=== PATIENT | female | born 1985 | race Caucasian/White ===

== ENCOUNTER 2017-11-25 00:11 | Emergency (ER) | payer OTHER, MEDICAID ==
[~2017-11-25] VITALS: Ht 152.4 cm; Wt 101.3 kg
[2017-11-25 00:13] VITALS: BP 111/60
--- NOTE | 2017-11-25 00:35 | NUR ---
PATIENT PRESENTS TO ED WITH SOB . PT STATES SHE HAS HAD DIFFICULTY BREATHING FOR A "FEW MONTHS" . DENIES N/V/D; SKIN IS PINK/WARM/DRY; AAOX4 WITH EVEN AND STEADY GAIT; LUNGS CLEAR BL; HR EVEN AND REGULAR; PT DENIES ANY FEVER, CP, OR COUGH AT THIS TIME; PATIENT STATES PAIN OF 0/10 AT THIS TIME; VSS; PATIENT POSITIONED FOR COMFORT; ER MD MADE AWARE OF PT STATUS.
--- NOTE | 2017-11-25 01:05 | NUR ---
pt returned from xray via wheel chair.
[2017-11-25 01:46] VITALS: BP 116/78
== END 2017-11-25 01:46 | disposition home or self-care (01) ==
LOC: MED 00:11
DX: R09.1 Pleurisy (principal); M54.6 Pain in thoracic spine; E11.9 Type 2 diabetes mellitus without complications
CPT/HCPCS: 71045; 82948; 99283; Q0092

== ENCOUNTER 2018-12-14 12:37 | Emergency (ER) | payer MEDICAID, OTHER ==
[~2018-12-14] VITALS: Ht 154.9 cm; Wt 99.8 kg
[2018-12-14 12:45] VITALS: BP 126/78
[2018-12-14] MEDS ORDERED: GLIP10TE PO (12:48)
[2018-12-14] MEDS ORDERED: METF850T PO (12:48)
--- NOTE | 2018-12-14 12:56 | NUR ---
PATIENT PRESENTS TO ED WITH THE CHIEF C/O HEADACHE AND RIGHT ARM PAIN X TODAY . DENIES N/V/D; SKIN IS PINK/WARM/DRY; AAOX4 WITH EVEN AND STEADY GAIT. PT DENIES ANY FEVER, CP, SOB, OR COUGH AT THIS TIME. SATURATING 100 % IN ROOM AIR. PATIENT STATES PAIN OF 5/10 AT THIS TIME; VSS; PATIENT POSITIONED FOR COMFORT; HOB ELEVATED; BEDRAILS UP X2; BED DOWN. ER MD MADE AWARE OF PT STATUS.
[2018-12-14] MEDS ORDERED: KETOROLAC 60 MG/2 ML VIAL IM ONE (13:15)
--- NOTE | 2018-12-14 13:15 | NUR ---
DR POSADAS AT BEDSIDE EVALUATING PT
[2018-12-14 13:56] VITALS: BP 120/63
== END 2018-12-14 13:54 | disposition home or self-care (01) ==
LOC: MED 12:37
DX: R51 Headache (principal); R20.0 Anesthesia of skin; M79.601 Pain in right arm; M54.2 Cervicalgia; E11.9 Type 2 diabetes mellitus without complications; Z79.84 Long term (current) use of oral hypoglycemic drugs
CPT/HCPCS: 81002; 81025; 82948; 96372; 99283; J1885

== ENCOUNTER 2019-02-08 10:24 | Emergency (ER) | payer MEDICAID ==
[~2019-02-08] VITALS: Ht 154.9 cm; Wt 98.4 kg
[~2019-02-08 10:24] MED LIST: GLIP10TE PO; METF850T PO
[2019-02-08 10:28] VITALS: BP 139/74
--- NOTE | 2019-02-08 10:30 | NUR ---
33 Y F BIB DAUGHTER WITH C/O HEADACHE, SINUS PAIN AND DIARRHEA SINCE LAST NIGHT. BOWEL SOPUNDS ACTIVE IN ALL 4 QUADRANTS. LAST BM LAST NIGHT. PAIN 7/10 FOR HEADACHE. AA0X4. VSS AT THIS TIME. BED IS DOWN, LOCKED, BED RAIL X 1, ERMD NOTIFIED. PMH-DIABETES
--- NOTE | 2019-02-08 11:22 | NUR ---
dr helms at bedside
[2019-02-08] MEDS ORDERED: ACETAMINOPHEN 325 MG TAB PO ONE (11:35)
[2019-02-08] MEDS ORDERED: NACL 0.9% 1,000 ML IV ONE (11:35)
--- NOTE | 2019-02-08 12:29 | NUR ---
Ashley sommers in [facility] - 02/08/19 at 1229 by [email or web address] RAD AT BEDSIDE
--- NOTE | 2019-02-08 12:39 | NUR ---
Dr. Lowe re-evaluating patient at bedside.
[2019-02-08 13:02] VITALS: BP 134/75
--- NOTE | 2019-02-08 13:02 | NUR ---
Patient discharged with v/s stable. Written and verbal after care instructions given and explained. Patient alert, oriented and verbalized understanding of instructions. Ambulatory with steady gait. All questions addressed prior to discharge. ID band removed. Patient advised to follow up with PMD. Rx of zofran, tamiflu, ibuprofen given. Patient educated on indication of medication including possible reaction and side effects. Opportunity to ask questions provided and answered.
== END 2019-02-08 13:02 | disposition home or self-care (01) ==
LOC: MED 10:24
DX: J10.1 Influenza due to other identified influenza virus with other respiratory manifestations (principal); R19.7 Diarrhea, unspecified; R10.9 Unspecified abdominal pain; E11.9 Type 2 diabetes mellitus without complications; Z79.84 Long term (current) use of oral hypoglycemic drugs
CPT/HCPCS: 81002; 81025; 82948; 87804; 96360; 99283; J7030

== ENCOUNTER 2019-07-18 15:54 | Emergency (ER) | payer MEDICAID ==
[~2019-07-18] VITALS: Ht 154.9 cm; Wt 99.8 kg
[2019-07-18 16:04] VITALS: BP 106/70
--- NOTE | 2019-07-18 16:14 | NUR ---
PT AMB TO BED 6 AT THIS TIME, REPORTED TO MACEY LARSON.
--- NOTE | 2019-07-18 16:25 | NUR ---
PT C/O SOB, TIGHT CP, AND GENERALIZED WEAKNESS X 2 DAYS AND COSTIPATION. DENIES N/V/D; SKIN IS PINK/WARM/DRY; AAOX4 WITH EVEN AND STEADY GAIT; LUNGS ARE CLEAR. HR EVEN AND REGULAR; PT DENIES ANY FEVER OR COUGH AT THIS TIME; PATIENT STATES CHEST PAIN OF 4/10 AT THIS TIME; VSS; PATIENT POSITIONED FOR COMFORT; HOB ELEVATED; BEDRAILS UP X1; BED DOWN. ER MD MADE AWARE OF PT STATUS.
[2019-07-18] MEDS ORDERED: NACL 0.9% 1,000 ML IV ONE (16:30)
--- NOTE | 2019-07-18 17:02 | NUR ---
PT IS RESTING IN BED. VSS.
[2019-07-18 17:09] LABS: BASOPHILS % (AUTO) 0.4 % (0.0-2.0); EOSINOPHILS # (AUTO) 0.2 K/uL (0-0.4); EOSINOPHILS % (AUTO) 2.4 % (0.0-4.0); HEMATOCRIT 37.8 % (36-48); HEMOGLOBIN 12.4 g/dL (12.0-16.0); LYMPHOCYTES # (AUTO) 3.3 K/uL (2.5-16.5); LYMPHOCYTES % (AUTO) 31.6 % (20.5-51.1); MEAN CORPUSCULAR HEMOGLOBIN 28 pg (27-31); MEAN CORPUSCULAR HGB CONC 33 g/dL (33-37); MEAN CORPUSCULAR VOLUME 85.2 fL (80-94); MONOCYTES # (AUTO) 0.7 K/uL (0.8-1.0); MONOCYTES % (AUTO) 6.8 % (1.7-9.3); NEUTROPHILS # (AUTO) 6.2 K/uL (1.8-7.7); NEUTROPHILS % (AUTO) 58.8 % (42.2-75.2); PLATELET COUNT (AUTO) 190 K/uL (140-450); RED BLOOD CELL COUNT(AUTO) 4.44 MIL/uL (4.20-5.40); RED CELL DISTRIBUTION WIDTH 14.3 % (11.6-13.7); WHITE BLOOD COUNT (AUTO) 10.5 K/uL (4.8-10.8)
[2019-07-18 17:26] LABS: ANION GAP 17.1 (8-16); CARBON DIOXIDE 22.3 mmol/L (21-32); CREATININE 0.7 mg/dL (0.6-1.3); POTASSIUM 3.4 mmol/L (3.5-5.1)
[2019-07-18 17:39] LABS: TOTAL BILIRUBIN 0.3 mg/dL (0.0-1.0)
[2019-07-18 18:02] LABS: APPEARANCE,URINE CLEAR (CLEAR); BILIRUBIN,URINE NEGATIVE (NEGATIVE); BLOOD, URINE NEGATIVE (NEGATIVE); COLOR,URINE YELLOW (YELLOW); LEUKOCYTE ESTERASE ,URINE NEGATIVE (NEGATIVE); NITRITE, URINE NEGATIVE (NEGATIVE); UGLUCOSE 3+ (NEGATIVE)
--- NOTE | 2019-07-18 18:32 | NUR ---
ACC CHECK. PT BLOOD GLUCOSE 209MG/DL, DR. NIURKA DARDEN.
[2019-07-18 18:53] VITALS: BP 98/49
--- NOTE | 2019-07-18 18:53 | NUR ---
Patient discharged with v/s stable. Written and verbal after care instructions given and explained. Patient alert, oriented and verbalized understanding of instructions. Ambulatory with steady gait. All questions addressed prior to discharge. ID band removed. Patient advised to follow up with PMD. Rx of Claritin given. Patient educated on indication of medication including possible reaction and side effects. Opportunity to ask questions provided and answered.
== END 2019-07-18 18:53 | disposition home or self-care (01) ==
LOC: MED 15:54
DX: E11.65 Type 2 diabetes mellitus with hyperglycemia (principal); Z98.890 Other specified postprocedural states; Z79.84 Long term (current) use of oral hypoglycemic drugs; Z79.899 Other long term (current) drug therapy
CPT/HCPCS: 36415; 36600; 71045; 80053; 81003; 81025; 82803; 82948; 83690; 84484; 85025; 93005; 96360; 99284; J7030

== ENCOUNTER 2019-08-02 14:34 | Emergency (ER) | payer OTHER, MEDICAID ==
[~2019-08-02] VITALS: Ht 152.4 cm; Wt 98.4 kg
[2019-08-02 14:45] VITALS: BP 105/72
[2019-08-02 16:52] LABS: BASOPHILS % (AUTO) 0.3 % (0.0-2.0); EOSINOPHILS # (AUTO) 0.2 K/uL (0-0.4); EOSINOPHILS % (AUTO) 1.5 % (0.0-4.0); HEMATOCRIT 36.4 % (36-48); HEMOGLOBIN 11.8 g/dL (12.0-16.0); LYMPHOCYTES # (AUTO) 5.5 K/uL (2.5-16.5); LYMPHOCYTES % (AUTO) 40.8 % (20.5-51.1); MEAN CORPUSCULAR HEMOGLOBIN 28 pg (27-31); MEAN CORPUSCULAR HGB CONC 32 g/dL (33-37); MEAN CORPUSCULAR VOLUME 85.9 fL (80-94); MONOCYTES # (AUTO) 0.8 K/uL (0.8-1.0); NEUTROPHILS % (AUTO) 51.4 % (42.2-75.2); PLATELET COUNT (AUTO) 201 K/uL (140-450); RED BLOOD CELL COUNT(AUTO) 4.23 MIL/uL (4.20-5.40); RED CELL DISTRIBUTION WIDTH 14.1 % (11.6-13.7); WHITE BLOOD COUNT (AUTO) 13.5 K/uL (4.8-10.8)
[2019-08-02] MEDS ORDERED: ALBUTEROL SULFATE/IPRATROPIU 3 ML SOL IH ONE ×3 (17:00→17:45)
[2019-08-02] MEDS ORDERED: predniSONE 20 MG TAB PO ONE (17:00)
[2019-08-02 17:14] LABS: ALBUMIN 3.3 g/dL (3.4-5.0); ANION GAP 12.9 (8-16); CARBON DIOXIDE 27.2 mmol/L (21-32); CREATININE 0.5 mg/dL (0.6-1.3); POTASSIUM 3.1 mmol/L (3.5-5.1); TOTAL BILIRUBIN 0.3 mg/dL (0.0-1.0)
[2019-08-02] MEDS ORDERED: POTASSIUM CHLORIDE 10 MEQ TABER PO ONE (19:25)
[2019-08-02 19:48] VITALS: BP 105/53
== END 2019-08-02 19:48 | disposition home or self-care (01) ==
LOC: MED 14:34
DX: R06.02 Shortness of breath (principal); R07.9 Chest pain, unspecified; R05 Cough; E87.6 Hypokalemia; E11.9 Type 2 diabetes mellitus without complications; Z79.84 Long term (current) use of oral hypoglycemic drugs
CPT/HCPCS: 36415; 71045; 71046; 80053; 82948; 84484; 85025; 85379; 93005; 94640; 99284; J7512; J7620; Q0092

== ENCOUNTER 2019-08-04 11:31 | Emergency (ER) | payer OTHER, MEDICAID ==
[~2019-08-04] VITALS: Ht 154.9 cm; Wt 95.7 kg
[2019-08-04 11:37] VITALS: BP 115/76
--- NOTE | 2019-08-04 11:40 | NUR ---
PT TAKEN TO BED 12.
--- NOTE | 2019-08-04 11:50 | NUR ---
C/O COUGH/SOB X2 DAYS. PT STATES SHE WAS SEEN AT [facility] 08/02/19 AND GIVEN PREDNISONE AND VENTOLIN BUT IT IS NOT HELPING. O2 SAT 100% RA, BREATHING IS SHALLOW, UNLABORED. RR NORMAL, BREATH SOUNDS CEBL. PT HAS MOIST COUGH. PT IS BRADYCARDIC AT 45 BPM. PT PLACED ON BEDSIDE MODELING DIRECTOR AT THIS TIME. BED IN LOW POSITION, SIDE RAIL UP X1, SON AT BEDSIDE.
--- NOTE | 2019-08-04 12:25 | NUR ---
ERMD AT BEDSIDE
--- NOTE | 2019-08-04 12:28 | NUR ---
PT RECENTLY BEGAN TAKING SUPPLEMENTS THAT CONTAIN REISHI & ANT SPENCER 1 WEEK AGO.
[2019-08-04 12:54] LABS: BASOPHILS % (AUTO) 0.4 % (0.0-2.0); EOSINOPHILS # (AUTO) 0.1 K/uL (0-0.4); EOSINOPHILS % (AUTO) 1.2 % (0.0-4.0); HEMATOCRIT 37.1 % (36-48); HEMOGLOBIN 12.1 g/dL (12.0-16.0); LYMPHOCYTES # (AUTO) 2.7 K/uL (2.5-16.5); LYMPHOCYTES % (AUTO) 23.1 % (20.5-51.1); MEAN CORPUSCULAR HEMOGLOBIN 28 pg (27-31); MEAN CORPUSCULAR HGB CONC 33 g/dL (33-37); MEAN CORPUSCULAR VOLUME 86.9 fL (80-94); MONOCYTES # (AUTO) 0.6 K/uL (0.8-1.0); MONOCYTES % (AUTO) 4.9 % (1.7-9.3); NEUTROPHILS # (AUTO) 8.2 K/uL (1.8-7.7); NEUTROPHILS % (AUTO) 70.4 % (42.2-75.2); PLATELET COUNT (AUTO) 192 K/uL (140-450); RED BLOOD CELL COUNT(AUTO) 4.27 MIL/uL (4.20-5.40); RED CELL DISTRIBUTION WIDTH 14.5 % (11.6-13.7); WHITE BLOOD COUNT (AUTO) 11.7 K/uL (4.8-10.8)
[2019-08-04 13:00] LABS: ANION GAP 11.3 (8-16); CARBON DIOXIDE 30.4 mmol/L (21-32); CREATININE 0.5 mg/dL (0.6-1.3); POTASSIUM 3.7 mmol/L (3.5-5.1)
--- NOTE | 2019-08-04 13:45 | NUR ---
PT RESTING IN BED, VSS AT THIS TIME. NO NEW NEEDS PER PT.
[2019-08-04 15:05] VITALS: BP 118/71
--- NOTE | 2019-08-04 15:05 | NUR ---
Patient discharged with v/s stable. Written and verbal after care instructions given and explained. Patient verbalized understanding. Ambulatory with steady gait. All questions addressed prior to discharge. Advised to follow up with PMD.
== END 2019-08-04 15:05 | disposition home or self-care (01) ==
LOC: MED 11:31
DX: F41.9 Anxiety disorder, unspecified (principal); R42 Dizziness and giddiness; E11.9 Type 2 diabetes mellitus without complications; Z79.84 Long term (current) use of oral hypoglycemic drugs
CPT/HCPCS: 36415; 71045; 80048; 81025; 84484; 85025; 99284; Q0092

== ENCOUNTER 2019-10-16 08:09 | Emergency (ER) | payer OTHER, MEDICAID ==
[~2019-10-16] VITALS: Ht 152.4 cm; Wt 98.0 kg
[2019-10-16 08:17] VITALS: BP 118/69
--- NOTE | 2019-10-16 08:17 | NUR ---
Patient ambulated to bed 11 with family. RN evaluating patient at bedside.
--- NOTE | 2019-10-16 08:25 | NUR ---
DR BAH AT BEDSIDE
--- NOTE | 2019-10-16 08:26 | NUR ---
C/O SOB X 4 DAYS WITH LOWER BACK NIELS X 2 DAYS. PT ADDS CP WITH PRODUCTIVE COUGH AND PHLEM, ACHING PAIN /. DENIES DYSURIA, UTI SYMPTOMS, N/V/D, OR PREVIOUS INJURY. LUNGS CLEAR BILATERALLY. PT HAS BEEN TO ER MULTIPLE PAST VISITS FOR SIMILAR S/S. VS STABLE. PT ALERT AND AWAKE. BED IS DOWN, LOCKED, BED RAIL X 1. PTS SON TRANSLATED MEDHX: AMBER
--- NOTE | 2019-10-16 08:29 | NUR ---
ACCU CHECK 159 DR BAH NOTIFIED
[2019-10-16 08:40] VITALS: BP 118/69
--- NOTE | 2019-10-16 08:40 | NUR ---
Patient discharged with v/s stable. Written and verbal after care instructions given IN BERMUDIAN REGARDING BRONCHITIS and explained IN TRISTANIAN TO PT AND SON, PTS SON TRANSLATED. Patient alert, oriented and verbalized understanding of instructions. Ambulatory with steady gait. All questions addressed prior to discharge. ID band removed. Patient advised to follow up with PMD IN 2-3 DAYS. Rx of CLARITIN AND AEROCHAMBER PLUS WITH MASK given. Patient educated on indication of medication including possible reaction and side effects. Opportunity to ask questions provided and answered.
== END 2019-10-16 08:40 | disposition home or self-care (01) ==
LOC: MED 08:09
DX: J40 Bronchitis, not specified as acute or chronic (principal); E11.9 Type 2 diabetes mellitus without complications; Z79.899 Other long term (current) drug therapy

== ENCOUNTER 2019-11-03 14:34 | Emergency (ER) | payer OTHER, MEDICAID ==
[~2019-11-03] VITALS: Ht 157.5 cm; Wt 98.4 kg
[2019-11-03 14:54] VITALS: BP 122/73
--- NOTE | 2019-11-03 14:59 | NUR ---
C/O R EARACHE 8/10 PAIN AND STATES THE L EAR IS "EXTRA NOISY" X THIS AM. NO DRAINAGE NOTED. BILATERAL EARS APPEAR TO BE NORMAL IN SHAPE. VS STABLE. PT ALERT AND AWAKE, AMBULATORY WITH STEADY GAIT. PTS SON TRANSLATING TAMAZIGHT/BRITISH PMH- DM
--- NOTE | 2019-11-03 15:05 | NUR ---
BRADY HAINES AT BEDSIDE
[2019-11-03 15:25] VITALS: BP 122/73
--- NOTE | 2019-11-03 15:25 | NUR ---
Patient discharged with v/s stable. Written INSTRUCTIONS GIVEN IN GAMBIAN and verbal after care instructions given IN MALAYSIAN and explained REGARDING EAR PAIN. Patient alert, oriented and verbalized understanding of instructions. Ambulatory with steady gait. All questions addressed prior to discharge. ID band removed. Patient advised to follow up with PMD. Rx of AUGMENTIN AND IBUPROFEN given. Patient educated on indication of medication including possible reaction and side effects. Opportunity to ask questions provided and answered. SON TRANSLATED DISCHARGE INSTRUCTIONS
== END 2019-11-03 15:25 | disposition home or self-care (01) ==
LOC: MED 14:34
DX: H66.91 Otitis media, unspecified, right ear (principal); E11.9 Type 2 diabetes mellitus without complications
CPT/HCPCS: 99283

== ENCOUNTER 2019-11-09 23:01 | Emergency (ER) | payer OTHER, MEDICAID ==
[~2019-11-09] VITALS: Ht 152.4 cm; Wt 100.8 kg
[2019-11-09 23:02] VITALS: BP 130/90
--- NOTE | 2019-11-09 23:05 | NUR ---
to lobby a/w bed ambulatory
--- NOTE | 2019-11-10 00:20 | NUR ---
PATIENT AMB TO BED 5
--- NOTE | 2019-11-10 00:25 | NUR ---
ASSESSMENT COMPLETED AT THIS TIME. PATIENT SITTING UP IN BED HOOKED UP TO O2 MONITOR. CHILDREN AT BEDSIDE. NO DISTRESS NOTED AT THIS TIME.
--- NOTE | 2019-11-10 00:44 | NUR ---
DR NEGRO AT BEDSIDE.
--- NOTE | 2019-11-10 00:45 | NUR ---
Ashley sommers in ED - 11/10/19 [place] [address] SRUTHI LOWRY PATIENT AND GAVE INSTRUCTION. PATIENT AMB TO [facility].
[2019-11-10] MEDS ORDERED: cefTRIAXone 1,000 MG in LIDOCAINE MPF 1% 2.1 ML IM ONE (00:55)
[2019-11-10] MEDS ORDERED: KETOROLAC 60 MG/2 ML VIAL IM ONE (00:55)
[2019-11-10] MEDS ORDERED: cefTRIAXone 1,000 MG VIAL ONE (00:59)
[2019-11-10] MEDS ORDERED: LIDOCAINE MPF 1% 5 ML ONE (00:59)
--- NOTE | 2019-11-10 01:13 | NUR ---
MEDICATIONS ADMINISTERED BY MARSHA CHANEL. DOCUMENTED IN ERROR UNDER SHERRY.
--- NOTE | 2019-11-10 01:14 | NUR ---
MEDICATED WITH 1 GM ROCEPHIN IM AND 60 MG TORADOL IM. WILL REASSESS IN 30 MINS.
[2019-11-10 01:30] VITALS: BP 124/85
--- NOTE | 2019-11-10 01:30 | NUR ---
PT STATES SHE WISHES TO LEAVE. ALREADY DISCHARGED BY DR. NEGRO. PT REPORTS RELIEF; 5/10 PAIN. NADR TO MEDICATIONS.
--- NOTE | 2019-11-10 01:33 | NUR ---
Patient discharged with v/s stable. Written and verbal after care instructions given and explained. Patient alert, oriented and verbalized understanding of instructions. Ambulatory with steady gait. All questions addressed prior to discharge. ID band removed. Patient advised to follow up with PMD. Rx of Augmentin and Tessalon Perles given. Patient educated on indication of medication including possible reaction and side effects. Opportunity to ask questions provided and answered. Discharged by Dr. Payne.
== END 2019-11-10 01:33 | disposition home or self-care (01) ==
LOC: MED 23:01
DX: J20.9 Acute bronchitis, unspecified (principal); E11.9 Type 2 diabetes mellitus without complications; Z98.890 Other specified postprocedural states; Z79.899 Other long term (current) drug therapy
CPT/HCPCS: 96372; 99283; J0696; J1885; J2001

== ENCOUNTER 2020-04-24 01:25 | Emergency (ER) | payer MEDICAID, OTHER ==
[~2020-04-24] VITALS: Ht 157.5 cm; Wt 104.3 kg
[2020-04-24 01:31] VITALS: BP 129/88
--- NOTE | 2020-04-24 01:37 | NUR ---
PT AMBUALTORY TO ROOM 6
--- NOTE | 2020-04-24 01:37 | NUR ---
PT 35 Y/O FEMALE BIB SELF FOR C/O CHEST PAIN AND SOB X 1 WEEK. PT STATES PAIN IS 8/10 , SHARP, AND CONTINOUS. PT STATES SHE HAS BEEN TAKING HER ASTHMA MEDICATION FOR SOB X1 WEEK BUT HAD INEFFECTIVE RESULTS TONIGHT. PT O2SAT @ 96% ON RA. PT RESPIRATIONS ARE LABORED, SHALLOW, AND AT A NORMAL RATE. PT STATES CHEST PAIN FEELS LIKE "A TIGHTNESS" AND RADIATES TO BACK. LUNG SOUNDS CLEAR BILAT A/P. NO COUGH NOTED. AFEBRILE. NEGATIVE COVID SCREEN. PT ALSO HAS C/O RUQ ABD PAIN. ABD IS ROUND, SOFT, AND NON-TENDER. NO N/V/D. BS PRESENT X 4. LAST BM WAS YESTYERDAY. PT ON REINFORCING STEEL ERECTOR. VSS. MEDHX: DM TYPE II, ASTHMA, GALLSTONES ALLERGIES: NKDA
--- NOTE | 2020-04-24 01:39 | NUR ---
Dr. Day examining patient.
--- NOTE | 2020-04-24 01:45 | NUR ---
EKG BEING PERFORMED AT BEDSIDE.
--- NOTE | 2020-04-24 01:47 | NUR ---
X-Ray at bedside.
[2020-04-24] MEDS ORDERED: predniSONE 20 MG TAB PO ONE (02:10)
--- NOTE | 2020-04-24 02:13 | NUR ---
LAB AT BEDSIDE.
--- NOTE | 2020-04-24 02:15 | NUR ---
PT AMBULATED TO RESTROOM WITH STEADY GAIT.
--- NOTE | 2020-04-24 02:15 | NUR ---
PT PROVIDED UA. UA SENT TO LAB AND GIVEN TO MEASUREMENT TECHNICIAN.
[2020-04-24 02:20] LABS: BASOPHILS # (AUTO) 0.1 K/uL (0.00-0.22); BASOPHILS % (AUTO) 0.5 % (0.0-2.0); EOSINOPHILS # (AUTO) 0.2 K/uL (0-0.4); EOSINOPHILS % (AUTO) 1.6 % (0.0-4.0); HEMATOCRIT 36.1 % (36-48); HEMOGLOBIN 11.8 g/dL (12.0-16.0); LYMPHOCYTES # (AUTO) 4.3 K/uL (2.5-16.5); LYMPHOCYTES % (AUTO) 37.8 % (20.5-51.1); MEAN CORPUSCULAR HEMOGLOBIN 28 pg (27-31); MEAN CORPUSCULAR HGB CONC 33 g/dL (33-37); MEAN CORPUSCULAR VOLUME 86.4 fL (80-94); MONOCYTES # (AUTO) 0.8 K/uL (0.8-1.0); MONOCYTES % (AUTO) 7.3 % (1.7-9.3); NEUTROPHILS # (AUTO) 6.1 K/uL (1.8-7.7); NEUTROPHILS % (AUTO) 52.8 % (42.2-75.2); PLATELET COUNT (AUTO) 191 K/uL (140-450); RED BLOOD CELL COUNT(AUTO) 4.17 MIL/uL (4.20-5.40); RED CELL DISTRIBUTION WIDTH 14.9 % (11.6-13.7); WHITE BLOOD COUNT (AUTO) 11.5 K/uL (4.8-10.8)
[2020-04-24 02:23] LABS: APPEARANCE,URINE CLEAR (CLEAR); BILIRUBIN,URINE NEGATIVE (NEGATIVE); BLOOD, URINE NEGATIVE (NEGATIVE); COLOR,URINE YELLOW (YELLOW); LEUKOCYTE ESTERASE ,URINE NEGATIVE (NEGATIVE); NITRITE, URINE NEGATIVE (NEGATIVE); PH,URINE 5.5 (5.0-9.0); UGLUCOSE NEGATIVE (NEGATIVE)
[2020-04-24 02:32] LABS: ALBUMIN 3.3 g/dL (3.4-5.0); ANION GAP 11.7 (8-16); CARBON DIOXIDE 27.7 mmol/L (21-32); CREATININE 0.7 mg/dL (0.6-1.3); POTASSIUM 3.4 mmol/L (3.5-5.1); TOTAL BILIRUBIN 0.3 mg/dL (0.0-1.0)
--- NOTE | 2020-04-24 02:39 | NUR ---
Ultrasound at bedside.
[2020-04-24 03:20] VITALS: BP 122/86
[2020-04-30] MEDS ORDERED: INSU-1343 SQ (17:58)
[2020-04-30] MEDS ORDERED: INSU100V9 SQ ×2 (17:58)
[2020-05-02] MEDS ORDERED: VITC500 PO (13:30)
[2020-05-02] MEDS ORDERED: XAR10 PO (13:30)
[2020-05-02] MEDS ORDERED: DEC4 PO (13:30)
[2020-05-02] MEDS ORDERED: VITD400 PO (13:30)
[2020-05-02] MEDS ORDERED: ZINC220C28 PO (13:30)
== END 2020-04-24 03:20 | disposition home or self-care (01) ==
LOC: MED 01:25
DX: K80.20 Calculus of gallbladder without cholecystitis without obstruction (principal); E87.6 Hypokalemia; E11.9 Type 2 diabetes mellitus without complications; J45.909 Unspecified asthma, uncomplicated; Z79.899 Other long term (current) drug therapy
CPT/HCPCS: 36415; 71045; 76705; 80053; 81003; 83690; 85025; 93005; 99285; J7512; Q0092

== ENCOUNTER 2020-04-29 17:55 | Emergency (ER) | payer MEDICAID, SELFPAY ==
[~2020-04-29] VITALS: Ht 154.9 cm; Wt 100.2 kg
[2020-04-29 18:02] VITALS: BP 107/64
[2020-04-29] MEDS ORDERED: IBUPROFEN 600 MG TAB PO ONE (18:15)
[2020-04-29] MEDS ORDERED: ONDANSETRON 4 MG/2 ML VIAL IVP ONE (18:25)
[2020-04-29] MEDS ORDERED: NACL 0.9% 1,000 ML IV ONE (18:25)
[2020-04-29] MEDS ORDERED: KETOROLAC 30 MG/ML VIAL IVP ONE (18:25)
[2020-04-29 18:52] LABS: BASOPHILS % (AUTO) 0.3 % (0.0-2.0); EOSINOPHILS % (AUTO) 0.4 % (0.0-4.0); HEMATOCRIT 40.3 % (36-48); HEMOGLOBIN 12.9 g/dL (12.0-16.0); LYMPHOCYTES # (AUTO) 2.2 K/uL (2.5-16.5); LYMPHOCYTES % (AUTO) 26.5 % (20.5-51.1); MEAN CORPUSCULAR HEMOGLOBIN 28 pg (27-31); MEAN CORPUSCULAR HGB CONC 32 g/dL (33-37); MONOCYTES # (AUTO) 0.6 K/uL (0.8-1.0); MONOCYTES % (AUTO) 6.8 % (1.7-9.3); NEUTROPHILS # (AUTO) 5.4 K/uL (1.8-7.7); PLATELET COUNT (AUTO) 169 K/uL (140-450); RED BLOOD CELL COUNT(AUTO) 4.63 MIL/uL (4.20-5.40); RED CELL DISTRIBUTION WIDTH 15.2 % (11.6-13.7); WHITE BLOOD COUNT (AUTO) 8.3 K/uL (4.8-10.8)
[2020-04-29 19:06] LABS: ANION GAP 13.7 (8-16); CARBON DIOXIDE 27.6 mmol/L (21-32); CREATININE 0.7 mg/dL (0.6-1.3); POTASSIUM 3.3 mmol/L (3.5-5.1); TOTAL BILIRUBIN 0.2 mg/dL (0.0-1.0)
[2020-04-29 19:10] LABS: APPEARANCE,URINE HAZY (CLEAR); BILIRUBIN,URINE NEGATIVE (NEGATIVE); BLOOD, URINE NEGATIVE (NEGATIVE); COLOR,URINE YELLOW (YELLOW); LEUKOCYTE ESTERASE ,URINE NEGATIVE (NEGATIVE); NITRITE, URINE NEGATIVE (NEGATIVE); PH,URINE 6.5 (5.0-9.0); UGLUCOSE NEGATIVE (NEGATIVE)
[2020-04-29 20:54] VITALS: BP 98/48
[2020-04-30] MEDS ORDERED: INSU100V9 SQ ×2 (17:58)
[2020-04-30] MEDS ORDERED: INSU-1343 SQ (17:58)
[2020-05-02] MEDS ORDERED: DEC4 PO (13:30)
[2020-05-02] MEDS ORDERED: VITC500 PO (13:30)
[2020-05-02] MEDS ORDERED: XAR10 PO (13:30)
[2020-05-02] MEDS ORDERED: ZINC220C28 PO (13:30)
[2020-05-02] MEDS ORDERED: VITD400 PO (13:30)
== END 2020-04-29 20:53 | disposition home or self-care (01) ==
LOC: EEVIPCON 17:55 → MED 17:55
DX: U07.1 COVID-19 (principal); R19.7 Diarrhea, unspecified; J45.909 Unspecified asthma, uncomplicated; E11.9 Type 2 diabetes mellitus without complications; Z79.899 Other long term (current) drug therapy; Z79.84 Long term (current) use of oral hypoglycemic drugs
CPT/HCPCS: 36415; 71045; 74176; 80053; 81003; 81025; 83690; 85025; 87804; 96361; 96374; 96375; 99285; J1885; J2405; J7030; Q0092; U0003

== ENCOUNTER 2020-05-13 17:16 | Emergency (ER) | payer MEDICAID, SELFPAY ==
[~2020-05-13] VITALS: Ht 147.3 cm; Wt 99.8 kg
[~2020-05-13 17:16] MED LIST changes: +DEC4 PO; -GLIP10TE PO; +INSU-1343 SQ; +INSU100V9 SQ; +VITC500 PO; +VITD400 PO; +XAR10 PO; +ZINC220C28 PO
[2020-05-13 17:20] VITALS: BP 121/58
--- NOTE | 2020-05-13 17:30 | NUR ---
PT AMBULATED TO BED 10 WITH STEADY GAIT
--- NOTE | 2020-05-13 17:34 | NUR ---
35 Y/O FEMALE FROM HOME PREVIOUSLY TESTED COVID-19+, C/O SOB, COUGH, AND RASH TO RT BUTTOCKS. STATES RASH IS ITCHY, DENIES PAIN TO RASH. HAS HAD RASH FOR APPROX 1 WK. WHITE PUSTULES NOTED TO BUTTOCKS. 3/10 ACHING PAIN TO LOWER BACK. RR EVEN AND UNLABORED, NO APPARENT RESPIRATORY DISTRESS. VSS. MEDHX: ASTHMA, DM ALLERGIES: NKA
--- NOTE | 2020-05-13 17:52 | NUR ---
DR BURGOS AT BEDSIDE EXAMINING PT
[2020-05-13] MEDS: predniSONE 20 MG TAB PO ONE (18:23)
--- NOTE | 2020-05-13 18:25 | NUR ---
COVID-19 SWAB COLLECTED FROM PT
--- NOTE | 2020-05-13 18:41 | NUR ---
X-RAY AT BEDSIDE
[2020-05-13 19:02] VITALS: BP 121/58
--- NOTE | 2020-05-13 19:03 | NUR ---
Patient discharged with v/s stable. Written and verbal after care instructions given and explained. Patient alert, oriented and verbalized understanding of instructions. Ambulatory with steady gait. All questions addressed prior to discharge. ID band removed. Patient advised to follow up with PMD. Rx of ACYCLOVIR, PREDNISONE given. Patient educated on indication of medication including possible reaction and side effects. Opportunity to ask questions provided and answered.
== END 2020-05-13 19:03 | disposition home or self-care (01) ==
LOC: EEVIPCON 17:16 → MED 17:16
DX: J45.909 Unspecified asthma, uncomplicated (principal); Z20.828 Contact with and (suspected) exposure to other viral communicable diseases; R21 Rash and other nonspecific skin eruption; R05 Cough; E11.9 Type 2 diabetes mellitus without complications; K21.9 Gastro-esophageal reflux disease without esophagitis; Z98.890 Other specified postprocedural states; Z79.4 Long term (current) use of insulin; Z79.899 Other long term (current) drug therapy
CPT/HCPCS: 71045; 99284; J7512; Q0092; U0003

== ENCOUNTER 2020-05-28 22:51 | Emergency (ER) | payer MEDICAID, SELFPAY ==
[~2020-05-28] VITALS: Ht 154.9 cm; Wt 99.8 kg
[2020-05-28 22:58] VITALS: BP 117/79
[2020-05-29 02:08] VITALS: BP 117/79
[2020-05-29] MEDS ORDERED: ACETAMINOPHEN EXTRA STRENGTH 500 MG TAB PO ONE (02:40)
[2020-05-29] MEDS ORDERED: KETOROLAC 30 MG/ML VIAL IM ONE (02:40)
[2020-05-29 03:01] LABS: BASOPHILS % (AUTO) 0.2 % (0.0-2.0); EOSINOPHILS # (AUTO) 0.2 K/uL (0-0.4); EOSINOPHILS % (AUTO) 2.7 % (0.0-4.0); HEMATOCRIT 35.8 % (36-48); HEMOGLOBIN 11.6 g/dL (12.0-16.0); LYMPHOCYTES # (AUTO) 2.5 K/uL (2.5-16.5); LYMPHOCYTES % (AUTO) 33.9 % (20.5-51.1); MEAN CORPUSCULAR HEMOGLOBIN 28 pg (27-31); MEAN CORPUSCULAR HGB CONC 32 g/dL (33-37); MEAN CORPUSCULAR VOLUME 87.8 fL (80-94); MONOCYTES # (AUTO) 0.8 K/uL (0.8-1.0); MONOCYTES % (AUTO) 10.3 % (1.7-9.3); NEUTROPHILS # (AUTO) 3.9 K/uL (1.8-7.7); NEUTROPHILS % (AUTO) 52.9 % (42.2-75.2); PLATELET COUNT (AUTO) 145 K/uL (140-450); RED BLOOD CELL COUNT(AUTO) 4.08 MIL/uL (4.20-5.40); WHITE BLOOD COUNT (AUTO) 7.3 K/uL (4.8-10.8)
[2020-05-29 03:24] LABS: ALBUMIN 3.2 g/dL (3.4-5.0); CARBON DIOXIDE 27.1 mmol/L (21-32); CREATININE 0.6 mg/dL (0.6-1.3); POTASSIUM 3.1 mmol/L (3.5-5.1); TOTAL BILIRUBIN 0.2 mg/dL (0.0-1.0)
== END 2020-05-29 05:20 | disposition home or self-care (01) ==
LOC: MED 22:51
DX: R60.9 Edema, unspecified (principal); E87.6 Hypokalemia; R73.9 Hyperglycemia, unspecified; J45.909 Unspecified asthma, uncomplicated
CPT/HCPCS: 36415; 80053; 83880; 85025; 93970; 96372; 99284; J1885; Q0092; 99283

== ENCOUNTER 2020-05-29 15:24 | Emergency (ER) | payer MEDICAID, SELFPAY ==
[~2020-05-29] VITALS: Ht 175.3 cm; Wt 104.3 kg
[2020-05-29 15:44] VITALS: BP 135/76
--- NOTE | 2020-05-29 17:11 | NUR ---
PT AMBULATED TO BATHROOM, STEADY GAIT.
--- NOTE | 2020-05-29 17:15 | NUR ---
DR. HORTA AT BEDSIDE.
--- NOTE | 2020-05-29 17:17 | NUR ---
35 Y/F PRESENTS TO ED C C/O SWOLLEN FEET X2 DAYS AND WANTS TO GET HER SHOULDER RECHECKED, SHE STATES IT HAS BEEN INFLAMED, BUT IS NOT GIVING HER ANY PAIN. SOFT SWELLING NOTED TO R SHOULDER UNDER CLAVICLE. DENIES ANY RECENT INJURY. PT ALSO STATES SHES BEEN FEELING MILD SHARP CHEST PAIN COME AND GO, REPORTS 2/10 THROBBING PAIN. PT DENIES N/V/D/F. DENIES ANY SOB/COUGH/FEVER. PMH: ASTHMA, DM
[2020-05-29] MEDS ORDERED: KETOROLAC 30 MG/ML VIAL IM ONE (17:25)
--- NOTE | 2020-05-29 17:56 | NUR ---
TORADOL IM ADMINISTERED
--- NOTE | 2020-05-29 17:58 | NUR ---
BRADY HASSAN AT BEDSIDE RE-EVALUATING PT
[2020-05-29 18:04] VITALS: BP 129/72
--- NOTE | 2020-05-29 18:05 | NUR ---
Patient discharged with v/s stable. Written and verbal after care instructions given and explained. Patient alert, oriented and verbalized understanding of instructions. Ambulatory with steady gait. All questions addressed prior to discharge. ID band removed. Patient advised to follow up with PMD. Rx of FLEXERIL 10MG AND TRAMADOL 50MG given. Patient educated on indication of medication including possible reaction and side effects. Opportunity to ask questions provided and answered.
== END 2020-05-29 18:05 | disposition home or self-care (01) ==
LOC: MED 15:24
DX: S16.1XXA Strain of muscle, fascia and tendon at neck level, initial encounter (principal); I87.8 Other specified disorders of veins; M79.89 Other specified soft tissue disorders; J45.909 Unspecified asthma, uncomplicated; E11.9 Type 2 diabetes mellitus without complications; K21.9 Gastro-esophageal reflux disease without esophagitis; Z79.4 Long term (current) use of insulin; Z79.899 Other long term (current) drug therapy; X58.XXXA Exposure to other specified factors, initial encounter; Y93.89 Activity, other specified; Y92.89 Other specified places as the place of occurrence of the external cause; Y99.8 Other external cause status
CPT/HCPCS: 96372; 99283; J1885

== ENCOUNTER 2020-06-03 00:40 | Emergency (ER) | payer MEDICAID, SELFPAY ==
[~2020-06-03] VITALS: Ht 152.4 cm; Wt 99.8 kg
[2020-06-03 00:52] VITALS: BP 110/68
--- NOTE | 2020-06-03 01:03 | NUR ---
PT TO A/W IN TENT FOR MEDICAL EVALUATION. PT WEARING MASK
[2020-06-03] MEDS ORDERED: methylPREDNISolone SS 125 MG/2 ML VIAL IM ONE (01:10)
--- NOTE | 2020-06-03 01:11 | NUR ---
DR. RODRIGUEZ EVALUTING PT
[2020-06-03 01:33] VITALS: BP 110/68
== END 2020-06-03 01:45 | disposition home or self-care (01) ==
LOC: MED 00:40
DX: J45.901 Unspecified asthma with (acute) exacerbation (principal); E11.9 Type 2 diabetes mellitus without complications; K21.9 Gastro-esophageal reflux disease without esophagitis; Z79.899 Other long term (current) drug therapy
CPT/HCPCS: 96372; 99283; J2930

== ENCOUNTER 2020-06-07 16:42 | Emergency (ER) | payer MEDICAID, SELFPAY ==
[~2020-06-07] VITALS: Ht 154.9 cm; Wt 99.8 kg
[2020-06-07 16:59] VITALS: BP 109/74
--- NOTE | 2020-06-07 17:10 | NUR ---
35/F C/O CHEST TIGHTNESS/SOB/ASTHMA EXACERBATION PT TESTED COVID+ ON 05/13/20 BUT STATES A SUBSEQUENT NEGATIVE TEST VSS. SPEAKING IN FULL CLEAR SENTENCES. NAD. DX- DM, ASTHMA
--- NOTE | 2020-06-07 17:10 | NUR ---
DENIES COUGH AND FEVER
[2020-06-07] MEDS ORDERED: DEXAMETHASONE 10 MG/ML VIAL IM ONE (17:45)
[2020-06-07] MEDS ORDERED: ALBUTEROL HFA MDI 90 MCG/ACTUATION 8 GM INH ONE (17:45)
--- NOTE | 2020-06-07 17:50 | NUR ---
RT CALLED FOR MDI TREATMENT
--- NOTE | 2020-06-07 17:58 | NUR ---
MDI WITH SPACER THERAPY GIVEN ORDERED
--- NOTE | 2020-06-07 18:00 | NUR ---
RT DELIVERING ASHLYN BESS [place]
[2020-06-07 18:29] VITALS: BP 116/65
== END 2020-06-07 18:28 | disposition home or self-care (01) ==
LOC: MED 16:42
DX: J45.901 Unspecified asthma with (acute) exacerbation (principal); E11.9 Type 2 diabetes mellitus without complications; K21.9 Gastro-esophageal reflux disease without esophagitis; Z79.4 Long term (current) use of insulin; Z79.899 Other long term (current) drug therapy
CPT/HCPCS: 94664; 96372; 99283; J1100

== ENCOUNTER 2020-06-18 11:43 | Emergency (ER) | payer MEDICAID, SELFPAY ==
[~2020-06-18] VITALS: Ht 152.4 cm; Wt 99.8 kg
[2020-06-18 11:57] VITALS: BP 120/79
[2020-06-18 12:41] VITALS: BP 119/70
== END 2020-06-18 12:41 | disposition home or self-care (01) ==
LOC: MED 11:43
DX: R14.2 Eructation (principal); J45.909 Unspecified asthma, uncomplicated; E11.9 Type 2 diabetes mellitus without complications; K21.9 Gastro-esophageal reflux disease without esophagitis; Z79.4 Long term (current) use of insulin; Z79.899 Other long term (current) drug therapy
CPT/HCPCS: 99283

== ENCOUNTER 2020-06-27 12:40 | Emergency (ER) | payer MEDICAID, SELFPAY ==
[~2020-06-27] VITALS: Ht 152.4 cm; Wt 99.8 kg
[2020-06-27 12:42] VITALS: BP 132/96
--- NOTE | 2020-06-27 13:27 | NUR ---
35/F C/O NECK & BOTH SHOULDER PAIN X 2 DAYS. PT HAD LAP CHOLECYSTECTOMY AT [facility] 06/25/20. LAST BM 2 DAYS AGO. DENIES N/V/D, F/C PAIN 5/10 SQUEEZING MED HX: ASTHMA, LAP OSCAR, DM
--- NOTE | 2020-06-27 13:35 | NUR ---
DR HORTA EVALUATING PT AT BEDSIDE
[2020-06-27] MEDS ORDERED: ACETAMINOPHEN EXTRA STRENGTH 500 MG TAB PO ONE (13:40)
[2020-06-27] MEDS ORDERED: IBUPROFEN 600 MG TAB PO ONE (13:45)
--- NOTE | 2020-06-27 13:51 | NUR ---
XRAY AT BEDSIDE
--- NOTE | 2020-06-27 14:02 | NUR ---
PT AMB TO RESTROOM SLOW, STEADY GAIT
[2020-06-27 14:36] VITALS: BP 127/75
--- NOTE | 2020-06-27 14:38 | NUR ---
Patient discharged with v/s stable. Written and verbal after care instructions given and explained. Patient alert, oriented and verbalized understanding of instructions. Wheel Chair Assisted with to car. All questions addressed prior to discharge. ID band removed. Patient advised to follow up with PMD. Rx of NAPROSYN given. Patient educated on indication of medication including possible reaction and side effects. Opportunity to ask questions provided and answered.
== END 2020-06-27 14:38 | disposition home or self-care (01) ==
LOC: MED 12:40
DX: M79.18 Myalgia, other site (principal); M25.512 Pain in left shoulder; M25.511 Pain in right shoulder; E11.9 Type 2 diabetes mellitus without complications; J45.909 Unspecified asthma, uncomplicated; K21.9 Gastro-esophageal reflux disease without esophagitis; Z90.49 Acquired absence of other specified parts of digestive tract; Z79.899 Other long term (current) drug therapy
CPT/HCPCS: 71045; 99283; Q0092

== ENCOUNTER 2020-06-28 12:47 | Emergency (ER) | payer MEDICAID, SELFPAY ==
[~2020-06-28] VITALS: Ht 157.5 cm; Wt 81.6 kg
[2020-06-28 12:50] VITALS: BP 144/69
--- NOTE | 2020-06-28 12:53 | NUR ---
PATIENT WHEELCHAIR ASSISTED TO BED 6.
--- NOTE | 2020-06-28 13:29 | NUR ---
ERMD AT BEDSIDE
--- NOTE | 2020-06-28 13:30 | NUR ---
35 Y/O F C/C BACK PAIN X 1 DAY. PT DENIES TRAUMA,FALLS,HEAVY LIFTING. PT STATES PAIN 04/24, RIGHT SIDED NECK AREA RADIATING TO THE LOWER BACK. PT NKA. HX DM,ASTHMA. SX GALLBLADDER ON WEDNESDAY. RX ALBUTEROL,METFORMIN. NO NVD. SIDE RAIL X1.
[2020-06-28] MEDS ORDERED: NACL 0.9% 1,000 ML IV SCH (13:34)
[2020-06-28] MEDS ORDERED: MORPHINE SULFATE 4 MG/ML SYR IVP ONE (13:35)
[2020-06-28] MEDS ORDERED: ONDANSETRON 4 MG/2 ML VIAL IVP ONE (13:35)
--- NOTE | 2020-06-28 13:35 | NUR ---
Pt moved to bed 01 for covid precautions
--- NOTE | 2020-06-28 13:40 | NUR ---
REPORT GIVEN TO FIDELIA LARSON FOR CONTINUITY OF CARE PT TAKEN TO COVID ROOM ; PT POSITIVE.
--- NOTE | 2020-06-28 13:40 | NUR ---
RECEIVED REPORT FROM MARSHA CRUZ
[2020-06-28 13:53] LABS: BASOPHILS # (AUTO) 0.1 K/uL (0.00-0.22); BASOPHILS % (AUTO) 0.6 % (0.0-2.0); EOSINOPHILS # (AUTO) 0.2 K/uL (0-0.4); EOSINOPHILS % (AUTO) 2.3 % (0.0-4.0); HEMATOCRIT 36.4 % (36-48); HEMOGLOBIN 11.9 g/dL (12.0-16.0); LYMPHOCYTES # (AUTO) 3.4 K/uL (2.5-16.5); LYMPHOCYTES % (AUTO) 35.1 % (20.5-51.1); MEAN CORPUSCULAR HEMOGLOBIN 29 pg (27-31); MEAN CORPUSCULAR HGB CONC 33 g/dL (33-37); MEAN CORPUSCULAR VOLUME 87.4 fL (80-94); MONOCYTES # (AUTO) 0.6 K/uL (0.8-1.0); MONOCYTES % (AUTO) 6.8 % (1.7-9.3); NEUTROPHILS # (AUTO) 5.3 K/uL (1.8-7.7); NEUTROPHILS % (AUTO) 55.2 % (42.2-75.2); PLATELET COUNT (AUTO) 165 K/uL (140-450); RED BLOOD CELL COUNT(AUTO) 4.16 MIL/uL (4.20-5.40); RED CELL DISTRIBUTION WIDTH 15.5 % (11.6-13.7); WHITE BLOOD COUNT (AUTO) 9.6 K/uL (4.8-10.8)
[2020-06-28 14:20] LABS: ALBUMIN 3.2 g/dL (3.4-5.0); ANION GAP 17.3 (8-16); CREATININE 0.5 mg/dL (0.6-1.3); POTASSIUM 3.3 mmol/L (3.5-5.1); TOTAL BILIRUBIN 0.6 mg/dL (0.0-1.0)
--- NOTE | 2020-06-28 14:48 | NUR ---
One attempt at IV to left AC unsuccessful. Dr. Burks made aware. Report given to Cristina for IV attempt and if unsuccessful then Dr. Burks will insert an US guided IV. Consent for CT signed and placed in the chart.
--- NOTE | 2020-06-28 15:21 | NUR ---
DR. LING AT BEDSIDE FOR U/S GUIDED IV ACCESS: RT AC 18.
[2020-06-28 16:59] LABS: BILIRUBIN,URINE NEGATIVE (NEGATIVE); BLOOD, URINE NEGATIVE (NEGATIVE); COLOR,URINE YELLOW (YELLOW); LEUKOCYTE ESTERASE ,URINE NEGATIVE (NEGATIVE); NITRITE, URINE NEGATIVE (NEGATIVE); PH,URINE 8.5 (5.0-9.0); UGLUCOSE NEGATIVE (NEGATIVE)
[2020-06-28 17:02] LABS: APPEARANCE,URINE CLEAR (CLEAR)
--- NOTE | 2020-06-28 17:17 | NUR ---
CALLED XRAY--MADE THEM AWARE OF CXR ORDER FOR NGT PLACEMENT, TO BE DONE STAT PT WILL BE TX TO [facility] IN ONE HOUR.
--- NOTE | 2020-06-28 17:33 | NUR ---
XRAY AT BEDSIDE
[2020-06-28 18:28] VITALS: BP 109/52
--- NOTE | 2020-06-28 18:32 | NUR ---
REPORT TO [facility].
--- NOTE | 2020-06-28 18:39 | NUR ---
REPORT GIVEN TO DOM TERRY RN [phone] Addendum: 06/28/20 at 1926 by SH[facility]Y [facility]
== END 2020-06-28 18:32 | disposition short-term general hospital (02) ==
LOC: MED 12:47
DX: T88.9XXA Complication of surgical and medical care, unspecified, initial encounter (principal); K56.600 Partial intestinal obstruction, unspecified as to cause; U07.1 COVID-19; R10.13 Epigastric pain; J45.909 Unspecified asthma, uncomplicated; K21.9 Gastro-esophageal reflux disease without esophagitis; E11.9 Type 2 diabetes mellitus without complications; Z79.899 Other long term (current) drug therapy
CPT/HCPCS: 36415; 71045; 74177; 80053; 81003; 81025; 82150; 83690; 85025; 96361; 96374; 96375; 99285; J2270; J2405; J7030; Q0092; Q9967

== ENCOUNTER 2020-07-01 18:45 | Emergency (ER) | payer MEDICAID, SELFPAY ==
[~2020-07-01] VITALS: Ht 152.4 cm; Wt 99.8 kg
[2020-07-01 18:47] VITALS: BP 137/85
[2020-07-01] MEDS ORDERED: ALBUTEROL 0.083% 2.5 MG/3 ML NEBU INH ONE ×2 (19:15→19:55)
[2020-07-01] MEDS ORDERED: ALBUTEROL SULFATE/IPRATROPIU 3 ML SOL IH ONE ×2 (19:15→19:55)
[2020-07-01] MEDS ORDERED: predniSONE 20 MG TAB PO ONE (19:15)
[2020-07-01] MEDS ORDERED: KETOROLAC 60 MG/2 ML VIAL IM ONE (19:20)
--- NOTE | 2020-07-01 19:20 | NUR ---
35 Y/O FEMALE PRESENTS TO ER WITH C/O SOB X 1HR. 8/10 PAIN. PT STATES SHE WAS AT HOME, AND DAUGHTER POURED BLEACH ON THE FLOOR, AND AFTER INHALATION/EXPOSURE TO BLEACH SHE BEGAN TO HAVE SOB, AND FEELING OF TIGHTNESS IN THE CHEST. PT STATED SHE USED HER RX'D INHALERS FROM HOME, AND SYMPTOMS WEREN'T RESOLVED. DENIES NAUSEA, VOMITING, DIARRHEA, HEADACHE. R/R EQUAL, AND SHALLOW. BILATERAL LUNG LOBES CTA, VSS. NKDA PMH: ASTHMA, GALLBLADDER REMOVAL, HYSTERECTOMY, .
--- NOTE | 2020-07-01 19:30 | NUR ---
RT AT BEDSIDE.
--- NOTE | 2020-07-01 21:00 | NUR ---
P TOLERATED SECOND BREATHING TREATMENT WELL.
[2020-07-01 21:05] VITALS: BP 137/85
== END 2020-07-01 21:05 | disposition home or self-care (01) ==
LOC: MED 18:45
DX: J45.909 Unspecified asthma, uncomplicated (principal); E11.9 Type 2 diabetes mellitus without complications; K21.9 Gastro-esophageal reflux disease without esophagitis; Z90.49 Acquired absence of other specified parts of digestive tract; Z90.710 Acquired absence of both cervix and uterus; Z98.890 Other specified postprocedural states; Z79.4 Long term (current) use of insulin; Z79.899 Other long term (current) drug therapy
CPT/HCPCS: 82948; 96372; 99283; J1885; J7512; J7613

== ENCOUNTER 2020-07-23 17:49 | Emergency (ER) | payer MEDICAID, SELFPAY ==
[~2020-07-23] VITALS: Ht 157.5 cm; Wt 74.8 kg
--- NOTE | 2020-07-23 18:08 | NUR ---
PT AMBULATED TO ER BED 09
[2020-07-23 18:12] VITALS: BP 125/72
--- NOTE | 2020-07-23 18:12 | NUR ---
35 Y/O F C/C BURPING ON AND OFF X 3 MONTHS. PER PT REFERRED BY PCP TO ER FOR FURTHER EVALUATION OF BURPING AND EGD PROCEDURE. PT TAKEN OTC RX WITH NO RELIEF. DENIES DYSPNEA, CHEST PAIN, NAUSEA, VOMITING, DIARREAH AND CHANGES IN APPETITE. PT PRESENTS A/OX4,VSS,EUPNIC,AMBULATORY. NKA. HX DM,ASTHMA. RX OMEPRAZOLE,INSULIN,ALBUTEROL. SX LIVER REMOVAL. SIDE RAIL X1. PT PLACED FULL FOWLERS FOR COMFORT, 99% ROOM AIR.
--- NOTE | 2020-07-23 18:31 | NUR ---
PER ERMD TO CALL PCP FOR FURTHER INFORMATION IN REGARDS OF REFERRAL. CALLED PRIMARY OFFICE WITH NO ANSWER. ERMD NOTIFIED. [facility] - PHONE [phone]
--- NOTE | 2020-07-23 19:06 | NUR ---
REPORT RECEIVED FROM BERTHOLD FOR CONTINUITY OF CARE
--- NOTE | 2020-07-23 19:08 | NUR ---
REPORT GIVEN TO CHRIS FOR CONTINUITY OF CARE
[2020-07-23 19:40] VITALS: BP 125/72
--- NOTE | 2020-07-23 19:40 | NUR ---
Patient discharged with v/s stable. Written and verbal after care instructions given and explained. Patient verbalized understanding. Ambulatory with steady gait. ID Band Removed. All questions addressed prior to discharge. Advised to follow up with PMD.
== END 2020-07-23 19:40 | disposition home or self-care (01) ==
LOC: MED 17:49
DX: R14.2 Eructation (principal); J45.909 Unspecified asthma, uncomplicated; E11.9 Type 2 diabetes mellitus without complications; K21.9 Gastro-esophageal reflux disease without esophagitis; Z79.4 Long term (current) use of insulin; Z79.899 Other long term (current) drug therapy
CPT/HCPCS: 99281; 99283

== ENCOUNTER 2023-09-06 13:12 | Emergency (ER) | payer MEDICAID ==
[~2023-09-06] VITALS: Ht 154.9 cm; Wt 97.5 kg
[~2023-09-06 13:12] MED LIST changes: +METF-713 PO; -METF850T PO
[2023-09-06 13:49] VITALS: BP 114/54; PULSE 70; RESP 16; TEMP 97.7; O2SAT 100
[2023-09-06] MEDS ORDERED: KETOROLAC 30 MG/ML VIAL IM ONE (14:55)
[2023-09-06 14:59] LABS: BASOPHILS # (AUTO) 0.1 K/uL (0.00-0.22); BASOPHILS % (AUTO) 0.5 % (0.0-2.0); EOSINOPHILS # (AUTO) 0.3 K/uL (0-0.4); EOSINOPHILS % (AUTO) 2.5 % (0.0-4.0); HEMOGLOBIN 11.9 g/dL (12.0-16.0); LYMPHOCYTES # (AUTO) 4.7 K/uL (2.5-16.5); MEAN CORPUSCULAR HEMOGLOBIN 29 pg (27-31); MEAN CORPUSCULAR HGB CONC 33 g/dL (33-37); MEAN CORPUSCULAR VOLUME 86.3 fL (80-94); MONOCYTES # (AUTO) 0.7 K/uL (0.8-1.0); MONOCYTES % (AUTO) 6.6 % (1.7-9.3); NEUTROPHILS # (AUTO) 5.2 K/uL (1.8-7.7); NEUTROPHILS % (AUTO) 47.4 % (42.2-75.2); PLATELET COUNT (AUTO) 192 K/uL (140-450); RED BLOOD CELL COUNT(AUTO) 4.17 MIL/uL (4.20-5.40); RED CELL DISTRIBUTION WIDTH 14.3 % (11.6-13.7)
[2023-09-06 15:33] LABS: ALANINE AMINOTRANSFERASE 82 U/L (12-78); ALBUMIN 2.9 g/dL (3.4-5.0); ALKALINE PHOSPHATASE 133 U/L (50-136); ANION GAP 10.5 (8-16); ASPARTATE AMINOTRANSFERASE 71 U/L (15-37); CALCIUM 8.1 mg/dL (8.5-10.1); CARBON DIOXIDE 29.8 mmol/L (21-32); CHLORIDE 103 mmol/L (98-107); CREATININE 0.6 mg/dL (0.6-1.3); GFR ARICAN-AMERICAN 142 mL/min (>90); GFR NON ARICAN-AMERICAN 118 mL/min (>90); GLUCOSE 262 mg/dL (74-106); POTASSIUM 3.3 mmol/L (3.5-5.1); SODIUM SERUM 140 mmol/L (136-145); TOTAL BILIRUBIN 0.2 mg/dL (0.0-1.0); UREA NITROGEN, BLOOD 5 mg/dL (7-18)
[2023-09-06] MEDS ORDERED: DEXT118S25 PO (16:39)
[2023-09-06 16:55] VITALS: BP 114/60; PULSE 79; RESP 18; TEMP 98; O2SAT 98
== END 2023-09-06 16:57 | disposition home or self-care (01) ==
LOC: MED 13:12
DX: J06.9 Acute upper respiratory infection, unspecified (principal); D64.9 Anemia, unspecified; E87.6 Hypokalemia; J45.909 Unspecified asthma, uncomplicated; E11.9 Type 2 diabetes mellitus without complications; K21.9 Gastro-esophageal reflux disease without esophagitis; Z79.899 Other long term (current) drug therapy; Z79.01 Long term (current) use of anticoagulants; Z79.4 Long term (current) use of insulin
CPT/HCPCS: 36415; 71045; 80053; 84484; 85025; 93005; 96372; 99285; J1885

== ENCOUNTER 2023-11-05 04:05 | Emergency (ER) | payer MEDICAID ==
[~2023-11-05] VITALS: Ht 154.9 cm; Wt 95.3 kg
[~2023-11-05 04:05] MED LIST changes: +DEXT118S25 PO
[2023-11-05 04:15] VITALS: BP 115/72; PULSE 64; RESP 17; TEMP 97.9; O2SAT 100
[2023-11-05] MEDS ORDERED: CYCLOBENZAPRINE 10 MG TAB PO ONE (04:30)
[2023-11-05] MEDS ORDERED: KETOROLAC 30 MG/ML VIAL IM ONE (04:30)
[2023-11-05] MEDS ORDERED: CYCL-711 PO (05:07)
[2023-11-05] MEDS ORDERED: DICL100G32 TP (05:07)
[2023-11-05] MEDS ORDERED: ACET-10509 PO (05:07)
== END 2023-11-05 05:35 | disposition home or self-care (01) ==
LOC: MED 04:05
DX: S39.012A Strain of muscle, fascia and tendon of lower back, initial encounter (principal); J45.909 Unspecified asthma, uncomplicated; E11.9 Type 2 diabetes mellitus without complications; K21.9 Gastro-esophageal reflux disease without esophagitis; Z79.4 Long term (current) use of insulin; Z79.899 Other long term (current) drug therapy; X58.XXXA Exposure to other specified factors, initial encounter; Y93.89 Activity, other specified; Y92.89 Other specified places as the place of occurrence of the external cause; Y99.8 Other external cause status
CPT/HCPCS: 71045; 81025; 96372; 99283; J1885; Q0092

== ENCOUNTER 2024-01-13 12:27 | Emergency (ER) | payer MEDICAID, OTHER ==
[~2024-01-13] VITALS: Ht 154.9 cm; Wt 93.4 kg
[~2024-01-13 12:27] MED LIST changes: +ACET-10509 PO; +CYCL-711 PO; +DICL100G32 TP
[2024-01-13 12:36] VITALS: BP 114/63; PULSE 65; RESP 18; TEMP 98.3; O2SAT 100
[2024-01-13] MEDS ORDERED: DICL20GE TP (13:29)
[2024-01-13] MEDS ORDERED: ACET-10509 PO (13:29)
== END 2024-01-13 13:46 | disposition home or self-care (01) ==
LOC: MED 12:27
DX: M25.561 Pain in right knee (principal); J45.909 Unspecified asthma, uncomplicated; E11.9 Type 2 diabetes mellitus without complications; K21.9 Gastro-esophageal reflux disease without esophagitis; Z79.899 Other long term (current) drug therapy; Z79.4 Long term (current) use of insulin
CPT/HCPCS: 73562; 99283

== ENCOUNTER 2024-05-19 10:39 | Emergency (ER) | payer OTHER ==
[~2024-05-19] VITALS: Ht 154.9 cm; Wt 89.4 kg
[~2024-05-19 10:39] MED LIST changes: +DICL20GE TP
[2024-05-19 10:51] VITALS: BP 103/39; PULSE 64; RESP 17; TEMP 98; O2SAT 98
[2024-05-19] MEDS: ONDANSETRON 4 MG/2 ML VIAL IVP ONE (11:30)
[2024-05-19] MEDS: MORPHINE SULFATE 4 MG/ML SYR IVP ONE (11:30)
[2024-05-19 11:45] LABS: BASOPHILS # (AUTO) 0.1 K/uL (0.00-0.22); BASOPHILS % (AUTO) 0.6 % (0.0-2.0); EOSINOPHILS # (AUTO) 0.1 K/uL (0-0.4); EOSINOPHILS % (AUTO) 1.4 % (0.0-4.0); HEMATOCRIT 37.9 % (36-48); HEMOGLOBIN 12.5 g/dL (12.0-16.0); LYMPHOCYTES # (AUTO) 3.6 K/uL (2.5-16.5); LYMPHOCYTES % (AUTO) 36.9 % (20.5-51.1); MEAN CORPUSCULAR HEMOGLOBIN 29 pg (27-31); MEAN CORPUSCULAR HGB CONC 33 g/dL (33-37); MEAN CORPUSCULAR VOLUME 86.3 fL (80-94); MONOCYTES # (AUTO) 1.2 K/uL (0.8-1.0); MONOCYTES % (AUTO) 12.7 % (1.7-9.3); NEUTROPHILS # (AUTO) 4.6 K/uL (1.8-7.7); NEUTROPHILS % (AUTO) 48.4 % (42.2-75.2); PLATELET COUNT (AUTO) 213 K/uL (140-450); WHITE BLOOD COUNT (AUTO) 9.6 K/uL (4.8-10.8)
[2024-05-19 11:47] LABS: APPEARANCE,URINE CLEAR (CLEAR); BILIRUBIN,URINE NEGATIVE (NEGATIVE); BLOOD, URINE NEGATIVE (NEGATIVE); COLOR,URINE YELLOW (YELLOW); LEUKOCYTE ESTERASE ,URINE NEGATIVE (NEGATIVE); NITRITE, URINE NEGATIVE (NEGATIVE); PROTEIN,URINE NEGATIVE (NEGATIVE); UGLUCOSE NEGATIVE (NEGATIVE); UROBILINOGEN,URINE 0.2 EU/dL (0.2 - 1)
[2024-05-19 12:03] LABS: BILIRUBIN,DIRECT 0.1 mg/dL (0.0-0.3); TOTAL BILIRUBIN 0.2 mg/dL (0.0-1.0); TOTAL PROTEIN, SERUM 7.5 g/dL (6.4-8.2)
[2024-05-19 12:10] LABS: ANION GAP 12.6 (8-16); CALCIUM 8.3 mg/dL (8.5-10.1); CARBON DIOXIDE 29.1 mmol/L (21-32); CREATININE 0.5 mg/dL (0.6-1.3); POTASSIUM 3.7 mmol/L (3.5-5.1)
[2024-05-19] MEDS: NACL 0.9% 1,000 ML IV ONE (12:21)
[2024-05-19] MEDS ORDERED: IBUP-2218 PO (13:51)
[2024-05-19] MEDS ORDERED: ACET-10509 PO (13:51)
[2024-05-19] MEDS ORDERED: CYCL-711 PO (13:51)
[2024-05-19 14:47] VITALS: BP 110/62; PULSE 60; RESP 15; TEMP 98.1; O2SAT 99
== END 2024-05-19 14:47 | disposition home or self-care (01) ==
LOC: MED 10:39
DX: I88.0 Nonspecific mesenteric lymphadenitis (principal); J45.909 Unspecified asthma, uncomplicated; E11.9 Type 2 diabetes mellitus without complications; K21.9 Gastro-esophageal reflux disease without esophagitis; Z79.84 Long term (current) use of oral hypoglycemic drugs; Z79.4 Long term (current) use of insulin; Z79.1 Long term (current) use of non-steroidal anti-inflammatories (NSAID); Z79.899 Other long term (current) drug therapy; Z90.49 Acquired absence of other specified parts of digestive tract; Z98.890 Other specified postprocedural states
CPT/HCPCS: 36415; 74176; 80048; 80076; 81003; 81025; 82948; 83690; 85025; 96361; 96374; 96375; 99285; J2270; J2405; J7030